=== PATIENT | female | born 1990 | race Two or more races ===

== ENCOUNTER 2023-11-20 13:52 | Inpatient (IN) | payer BC, MEDICAID ==
[~2023-11-20] VITALS: Ht 152.4 cm; Wt 80.0 kg
[2023-11-20 14:57] LABS: Urine Bacteria NONE SEEN /hpf (None Seen); Urine Blood TRACE /uL (Negative); Urine Clarity HAZY (Clear); Urine Color Colorless (Yellow); Urine Protein, UAD TRACE (Negative); Urine Specific Gravity 1.021 (1.001-1.035); Urine Urobilinogen Normal (Negative); Urine WBC 7 /hpf (0 - 5)
[2023-11-20 17:39] LABS: Chloride 103 mmol/L (98-107); Potassium 4.2 mmol/L (3.5-5.1); Sodium 137 mmol/L (136-145)
[2023-11-20 17:40] LABS: Anion Gap 11 (5-15); Calcium 9.9 mg/dL (8.5-10.1); Carbon Dioxide 23 mmol/L (20-30)
[2023-11-20 17:45] LABS: BUN/Creatinine Ratio 15.2 (10.0-20.0); Blood Urea Nitrogen 14 mg/dL (9-23); Glucose 125 mg/dL (74-106)
[2023-11-20 17:53] LABS: Basophils # (auto) 0 10 ^3/uL (0-0.2); Eosinophils # (auto) 0 10 ^3/uL (0-0.8); Eosinophils % (auto) 0.1 % (0.0-7.0); Lymphocytes # (auto) 1.1 10 ^3/uL (0.4-5.4); Monocytes # (auto) 0.4 10 ^3/uL (0-1.3); White Blood Cell 13.5 10^3/uL (4.4-10.8)
[2023-11-20 17:55] LABS: Basophils % (auto) 0.2 % (0.0-2.0); Hematocrit 38.8 % (36.0-46.0); Hemoglobin 12.1 g/dL (12.2-16.2); Lymphocytes % (auto) 7.9 % (10.0-50.0); Mean Corpuscular Hemoglobin 25.1 pg (28.0-32.0); Mean Corpuscular Hgb Conc. 31.2 g/dL (32.0-36.0); Mean Corpuscular Volume 80.4 fL (80.0-100.0); Monocytes % (auto) 2.7 % (0.0-12.0); Neutrophils % (auto) 89.1 % (37.0-80.0); Red Blood Cells 4.82 10^6/uL (4.0-5.20); Red Cell Distribution Width 16.8 % (11.8-14.3)
[2023-11-20] MEDS ORDERED: MORPHINE SULFATE INJ 2 MG/ml SYRG IV PRN (19:15)
[2023-11-20] MEDS ORDERED: ACETAMINOPHEN 325 MG TAB PO PRN (19:15)
[2023-11-20] MEDS ORDERED: TAMS0.4C36 PO (19:23)
[2023-11-20] MEDS ORDERED: IBUP1TAB5 PO (19:23)
[2023-11-20] MEDS ORDERED: LEVO500T91 PO (19:23)
[2023-11-20] MEDS ORDERED: DOCU-265 PO (19:23)
[2023-11-20 19:42] LABS: Triglycerides 159 mg/dL (< 150)
[2023-11-20 19:43] LABS: LDL Cholesterol 210 mg/dL (< 100)
[2023-11-20 19:44] LABS: HDL Cholesterol 50 mg/dL (40-59)
[2023-11-20 19:45] LABS: Cholesterol 268 mg/dL (< 200)
[2023-11-20 19:51] LABS: Prothrombin Time 10.5 sec (9.3-11.8)
[2023-11-20] MEDS: ONDANSETRON HCL 4 MG/2 ML VIAL IV PRN (20:32)
[2023-11-20] MEDS: KETOROLAC TROMETH 30 MG/ML 1ML VIAL IV ONE (20:32)
[2023-11-20] MEDS: SODIUM CHLORIDE 0.9% 1,000 ML IV ONE ×2 (20:33→23:40)
[2023-11-20] MEDS: HYDROcodone-ACET 5/325MG TAB PO PRN (20:33)
[2023-11-20] MEDS ORDERED: ONDANSETRON HCL 4 MG/2 ML VIAL IV PRN (20:45)
[2023-11-20] MEDS: HYDROmorphone HCL 2 MG/ML VL/or syr IV ONE (23:40)
[2023-11-21 02:24] VITALS: PULSE 77; RESP 16; O2SAT 97
[2023-11-21] MEDS: SODIUM CHLORIDE 0.9% 1,000 ML IV SCH (02:24)
[2023-11-21] MEDS: cefTRIAXone 1GM/50ML D5W 50 ML IV ONE (02:25)
[2023-11-21] MEDS: DOCUSATE SOD 100 MG CAP PO SCH (02:25)
[2023-11-21] MEDS: TAMSULOSIN HYDROCHLORIDE 0.4 MG CAP PO ONE (02:25)
[2023-11-21] MEDS: PANTOPRAZOLE 40 MG/10 ML VIAL INJ IV ONE (02:26)
[2023-11-21] MEDS: MANNITOL FTV 25% 12.5 GM/50 ML 50 ML IV ONE ×2 (02:26→17:35)
[2023-11-21 05:00] LABS: Basophils # (auto) 0 10 ^3/uL (0-0.2); Eosinophils # (auto) 0.1 10 ^3/uL (0-0.8); Lymphocytes # (auto) 2.3 10 ^3/uL (0.4-5.4); Nucleated Red Blood Cells % 0.1 %
[2023-11-21 05:02] LABS: Basophils % (auto) 0.3 % (0.0-2.0); Hematocrit 34.1 % (36.0-46.0); Lymphocytes % (auto) 26.4 % (10.0-50.0); Mean Corpuscular Hemoglobin 25.6 pg (28.0-32.0); Mean Corpuscular Hgb Conc. 32.3 g/dL (32.0-36.0); Mean Corpuscular Volume 79.4 fL (80.0-100.0); Monocytes # (auto) 0.7 10 ^3/uL (0-1.3); Monocytes % (auto) 7.6 % (0.0-12.0); Neutrophils # (auto) 5.6 10 ^3/uL (1.6-8.6); Neutrophils % (auto) 64.7 % (37.0-80.0); Red Cell Distribution Width 17.3 % (11.8-14.3); White Blood Cell 8.6 10^3/uL (4.4-10.8)
[2023-11-21 05:28] LABS: Alanine Aminotransferase 33 U/L (7-40); Albumin 4.2 g/dL (3.2-4.8); Alkaline Phosphatase 49 U/L (46-116); Anion Gap 7 (5-15); Aspartate Aminotransferase 24 U/L (13-40); BUN/Creatinine Ratio 12.5 (10.0-20.0); Bilirubin, Total 0.6 mg/dL (0.2-1.0); Blood Urea Nitrogen 11 mg/dL (9-23); Calcium 8.6 mg/dL (8.5-10.1); Carbon Dioxide 26 mmol/L (20-30); Chloride 104 mmol/L (98-107); Glucose 96 mg/dL (74-106); Potassium 3.6 mmol/L (3.5-5.1); Sodium 137 mmol/L (136-145); Total Protein 6.9 g/dL (5.7-8.2)
[2023-11-21 08:08] VITALS: PULSE 80; RESP 16; O2SAT 97
[2023-11-21] MEDS: cefTRIAXone 1GM/50ML D5W 50 ML IV SCH (09:21)
[2023-11-21] MEDS ORDERED: ONDANSETRON HCL 4 MG/2 ML VIAL ONE (10:21)
[2023-11-21] MEDS ORDERED: KETOROLAC TROMETH 30 MG/ML 1ML VIAL ONE (10:21)
[2023-11-21] MEDS ORDERED: ROCURONIUM 10MG/ML 10ML VIAL IV ONE (10:21)
[2023-11-21] MEDS ORDERED: LIDOCAINE 2% (LOCAL ANESTH.) PF 5ml SDV ONE (10:21)
[2023-11-21] MEDS ORDERED: DexAMETHasone SOD PHOS 10MG/1ML VIAL INJ ONE (10:21)
[2023-11-21] MEDS ORDERED: PROPOFOL 10 MG/ML 20 ML IV ONE (10:21)
[2023-11-21] MEDS ORDERED: LIDOCAINE HCL 2% TOP JELLY 5ML TOP ONE (10:21)
[2023-11-21] MEDS: PANTOPRAZOLE 40 MG/10 ML VIAL INJ IV SCH (10:22)
[2023-11-21] MEDS ORDERED: fentaNYL CITRATE 100 MCG/2 ML VL ONE (12:34)
[2023-11-21 13:08] VITALS: O2SAT 100
[2023-11-21] MEDS ORDERED: fentaNYL CITRATE 100 MCG/2 ML VL IV PRN (13:15)
[2023-11-21] MEDS ORDERED: FLUMAZENIL 0.1 MG/ML INJ 10ML MDV IV PRN (13:15)
[2023-11-21] MEDS ORDERED: oxyCODONE HCL 5MG TAB PO PRN (13:15)
[2023-11-21] MEDS ORDERED: LABETALOL HCL 5 MG/ML 4ML SYRINGE IV PRN (13:15)
[2023-11-21] MEDS ORDERED: NALOXONE HCL 0.4 MG/ML VIAL IV PRN (13:15)
[2023-11-21] MEDS ORDERED: hydrALAZINE HCL 20 MG/ML VL IV PRN (13:15)
[2023-11-21] MEDS ORDERED: ePHEDrine SULFATE 50 MG/ML AMP IV PRN (13:15)
[2023-11-21] MEDS: ONDANSETRON HCL 4 MG/2 ML VIAL IV PRN (13:58)
[2023-11-21] MEDS: HYDROmorphone HCL 2 MG/ML VL/or syr IV PRN (13:58)
[2023-11-21 15:03] VITALS: BP 110/74; PULSE 62; RESP 20; TEMP 98.5; O2SAT 94
[2023-11-21] MEDS: chlorproMAZINE INECTION 25 MG in SODIUM CHL 0.9% 50 ML IV PRN (15:21)
[2023-11-21 17:07] VITALS: BP 110/74; PULSE 62; RESP 20; TEMP 98.5; O2SAT 94
[2023-11-21] MEDS: TAMSULOSIN HYDROCHLORIDE 0.4 MG CAP PO SCH (17:35)
[2023-11-21 20:00] VITALS: PULSE 80; RESP 18; RESP 20
[2023-11-22] VITALS: BP 98/60; PULSE 63; RESP 16; TEMP 97.7; O2SAT 95
[2023-11-22 05:00] VITALS: BP 112/80; PULSE 52; RESP 16; TEMP 97.6; O2SAT 98
[2023-11-22 05:45] LABS: Basophils # (auto) 0 10 ^3/uL (0-0.2); Basophils % (auto) 0.1 % (0.0-2.0); Eosinophils # (auto) 0 10 ^3/uL (0-0.8); Hemoglobin 10.7 g/dL (12.2-16.2); Lymphocytes # (auto) 1.3 10 ^3/uL (0.4-5.4); Mean Corpuscular Volume 80.4 fL (80.0-100.0); Nucleated Red Blood Cells % 0.1 %; Red Blood Cells 4.16 10^6/uL (4.0-5.20); White Blood Cell 9.1 10^3/uL (4.4-10.8)
[2023-11-22 05:47] LABS: Eosinophils % (auto) 0.1 % (0.0-7.0); Hematocrit 33.5 % (36.0-46.0); Lymphocytes % (auto) 14.4 % (10.0-50.0); Mean Corpuscular Hemoglobin 25.6 pg (28.0-32.0); Mean Corpuscular Hgb Conc. 31.9 g/dL (32.0-36.0); Monocytes # (auto) 0.7 10 ^3/uL (0-1.3); Monocytes % (auto) 7.3 % (0.0-12.0); Neutrophils # (auto) 7.1 10 ^3/uL (1.6-8.6); Neutrophils % (auto) 78.1 % (37.0-80.0); Red Cell Distribution Width 17.2 % (11.8-14.3)
[2023-11-22 06:10] LABS: Alanine Aminotransferase 34 U/L (7-40); Albumin 3.9 g/dL (3.2-4.8); Alkaline Phosphatase 48 U/L (46-116); Anion Gap 7 (5-15); Aspartate Aminotransferase 22 U/L (13-40); BUN/Creatinine Ratio 13.6 (10.0-20.0); Bilirubin, Total 0.3 mg/dL (0.2-1.0); Blood Urea Nitrogen 9 mg/dL (9-23); Calcium 8.7 mg/dL (8.5-10.1); Carbon Dioxide 24 mmol/L (20-30); Chloride 108 mmol/L (98-107); Glucose 111 mg/dL (74-106); Potassium 4.3 mmol/L (3.5-5.1); Sodium 139 mmol/L (136-145); Total Protein 6.4 g/dL (5.7-8.2)
[2023-11-22 06:36] LABS: Magnesium 2.2 mg/dL (1.6-2.6)
[2023-11-22 08:46] VITALS: BP 105/69; PULSE 55; RESP 20; TEMP 98; O2SAT 98
[2023-11-22] MEDS ORDERED: CEPH500C PO (11:18)
[2023-11-22 12:49] VITALS: BP 113/73; PULSE 73; RESP 20; TEMP 98.4; O2SAT 100
[2023-11-22 17:16] VITALS: BP 120/63; PULSE 74; RESP 20; TEMP 98.2; O2SAT 100
== END 2023-11-22 17:00 | disposition home or self-care (01) | DRG 661 ==
LOC: ER 13:52 → OVERFLOW 19:15 → WEST WING 11-21 14:28
PROVIDERS: ADMIT Nurse Practitioner Family; ATTEND Internal Medicine Geriatric Medicine
PROC: 0TF78ZZ Fragmentation in Left Ureter, Via Natural or Artificial Opening Endoscopic (ICD-10-PCS; 2023-11-21)
PROC: 0T778DZ Dilation of Left Ureter with Intraluminal Device, Via Natural or Artificial Opening Endoscopic (ICD-10-PCS; principal; 2023-11-21 12:10)
DX: N13.2 Hydronephrosis with renal and ureteral calculous obstruction (principal); D72.829 Elevated white blood cell count, unspecified; E66.01 Morbid (severe) obesity due to excess calories; Z68.34 Body mass index [BMI] 34.0-34.9, adult; Z87.442 Personal history of urinary calculi; Z90.49 Acquired absence of other specified parts of digestive tract
CPT/HCPCS: 36415; 74018; 74176; 76000; 80048; 80053; 80061; 81001; 82360; 83735; 84443; 84702; 85025; 85610; 87040; 87086; 87088; 87186; 96361; 96365; 96368; 96375; C9113; G0378; J1100; J1885; J2001; J2405; J2704